=== PATIENT | male | born 1975 | race Caucasian/White ===

== ENCOUNTER 2016-07-31 11:11 | Emergency (ER) | payer SELFPAY ==
[~2016-07-31] VITALS: Ht 168.9 cm; Wt 72.6 kg
[2016-07-31 11:21] VITALS: BP 170/101
[2016-07-31 11:40] LABS: BASO % 0 % (0-3); EOS % 5 % (0-3); HEMATOCRIT 49.9 % (39.0-53.0); HEMOGLOBIN 16.8 g/dL (13.0-17.5); LYMPH # 1.4 x10^3/uL (1.0-4.8); LYMPH % 23 % (24-48); MEAN CORPUSCULAR HEMOGLOBIN 30 pg (25-35); MEAN CORPUSCULAR HGB CONC 34 g/dL (31-37); MEAN CORPUSCULAR VOLUME 89 fL (79-100); MONO % 15 % (0-9); NEUT % 56 % (31-73); PLATELET COUNT 249 x10^3/uL (140-400); RED BLOOD COUNT 5.62 x10^6/uL (4.30-5.70); RED CELL DISTRIBUTION WIDTH 13.1 % (11.5-14.5); WHITE BLOOD COUNT 6.2 x10^3/uL (4.0-11.0)
[2016-07-31 11:48] LABS: CALCIUM 8.6 mg/dL (8.5-10.1); GFR 82.8; POTASSIUM 3.6 mmol/L (3.5-5.1)
[2016-07-31 11:54] LABS: ALBUMIN 3.7 g/dL (3.4-5.0); TOTAL BILIRUBIN 0.3 mg/dL (0.2-1.0); TOTAL PROTEIN 7.5 g/dL (6.4-8.2)
--- NOTE | 2016-07-31 12:21 | PHYS DOC ---
Past Medical History Past Medical History: Cancer, Other Additional Past Medical Histor: leukemia-remission, chronic gallbladder pain Past Surgical History: Other Additional Past Surgical Histo: dental sx Alcohol Use: None Drug Use: None Adult General Chief Complaint Chief Complaint: ABDOMINAL PAIN HPI HPI Patient is a 41 year old male who presents with N/V/D and abdominal pain. Patient reports he has been feeling sick for the past week. He has been having some nausea and vomiting, especially after eating. Having diarrhea as well. Patient reports sharp pain in his RUQ that radiates to his back; no clear mitigating factors. He reports he has a h/o gallstones. Unsure about fever but is having chills. No other acute complaints. Review of Systems Review of Systems Constitutional: Chills Eyes: Denies change in visual acuity or eye pain HENT: Denies nasal congestion or sore throat Respiratory: Denies cough or shortness of breath Cardiovascular: Denies chest pain GI: RUQ pain, nausea, vomiting, diarrhea. Denies blood in emesis or stool : Denies dysuria or hematuria Musculoskeletal: Denies joint pain Integument: Denies rash or skin lesions Neurologic: Denies headache, focal weakness or sensory changes Current Medications Current Medications Current Medications Medications (Trade) Dose Ordered Sig/Milad Start Time Stop Time Status Last Admin Dose Admin Morphine Sulfate 4 mg 1X ONCE 07/31/16 12:30 07/31/16 12:31 DC 07/31/16 12:29 4 MG Ondansetron HCl (Zofran) 4 mg 1X ONCE 07/31/16 12:30 07/31/16 12:31 DC 07/31/16 12:29 4 MG Oxycodone/ Acetaminophen (Percocet 5/325) 2 tab 1X ONCE 07/31/16 13:45 07/31/16 13:46 DC Sodium Chloride (Iv Sodium Chloride 0.9% 1000ml Bag) 1,000 ml @ 1,000 mls/hr Q1H 07/31/16 12:30 07/31/16 13:29 DC 07/31/16 12:30 1,000 MLS/HR Allergies Allergies Allergies Coded Allergies Type Severity Reaction Last Updated Verified No Known Drug Allergies 07/31/16 No Physical Exam Physical Exam Constitutional: Well developed, well nourished, no acute distress, non-toxic appearance HENT: Normocephalic, atraumatic, bilateral external ears normal Eyes: EOMI, conjunctiva normal, no discharge Neck: Normal range of motion, no stridor Cardiovascular: Heart rate normal, regular rhythm, no murmur Lungs & Thorax: Bilateral breath sounds clear to auscultation Abdomen: Bowel sounds normal, soft, non-distended, RUQ TTP without guarding or rebound Skin: Warm, dry, no erythema, no rash Extremities: No obvious deformity, no edema Neurologic: Alert and oriented X 3, no gross deficits noted Current Patient Data Vital Signs Vital Signs Date Time Temp Pulse Resp B/P Pulse Ox O2 Delivery O2 Flow Rate FiO2 07/31/16 12:29 16 98 Room Air 07/31/16 11:21 97.9 96 170/101 97.9 Lab Values Laboratory Tests Test 07/31/16 11:20 White Blood Count 6.2x10^3/uL (4.0-11.0) Red Blood Count 5.62x10^6/uL (4.30-5.70) Hemoglobin 16.8g/dL (13.0-17.5) Hematocrit 49.9% (39.0-53.0) Mean Corpuscular Volume 89fL (79-100) Mean Corpuscular Hemoglobin 30pg (25-35) Mean Corpuscular Hemoglobin Concent 34g/dL (31-37) Red Cell Distribution Width 13.1% (11.5-14.5) Platelet Count 249x10^3/uL (140-400) Neutrophils (%) (Auto) 56% (31-73) Lymphocytes (%) (Auto) 23% (24-48) L Monocytes (%) (Auto) 15% (0-9) H Eosinophils (%) (Auto) 5% (0-3) H Basophils (%) (Auto) 0% (0-3) Neutrophils # (Auto) 3.5x10^3uL (1.8-7.7) Lymphocytes # (Auto) 1.4x10^3/uL (1.0-4.8) Monocytes # (Auto) 0.9x10^3/uL (0.0-1.1) Eosinophils # (Auto) 0.3x10^3/uL (0.0-0.7) Basophils # (Auto) 0.0x10^3/uL (0.0-0.2) Sodium Level 139mmol/L (136-145) Potassium Level 3.6mmol/L (3.5-5.1) Chloride Level 99mmol/L (98-107) Carbon Dioxide Level 31mmol/L (21-32) Anion Gap 9 (6-14) Blood Urea Nitrogen 16mg/dL (8-26) Creatinine 1.0mg/dL (0.7-1.3) Estimated GFR (Cockcroft-Gault) 82.8 BUN/Creatinine Ratio 16 (6-20) Glucose Level 127mg/dL (70-99) H Calcium Level 8.6mg/dL (8.5-10.1) Total Bilirubin 0.3mg/dL (0.2-1.0) Aspartate Amino Transferase (AST) 20U/L (15-37) Alanine Aminotransferase (ALT) 32U/L (16-63) Alkaline Phosphatase 91U/L (46-116) Total Protein 7.5g/dL (6.4-8.2) Albumin 3.7g/dL (3.4-5.0) Albumin/Globulin Ratio 1.0 (1.0-1.7) Amylase Level 66U/L (25-115) Lipase 185U/L (73-393) Laboratory Tests 07/31/16 11:20 Laboratory Tests 07/31/16 11:20 EKG EKG [] Radiology/Procedures Radiology/Procedures RUQ US: Impression: 1. Gallbladder is contracted around numerous gallstones without pericholecystic fluid or gallbladder wall thickening. This finding can be seen in setting of chronic cholecystitis. 2. Dilated common bile duct. Nonvisualized distal obstructing stone or other lesion is possible. Recommend clinical correlation. Course & Med Decision Making Course & Med Decision Making Pertinent Labs and Imaging studies reviewed. (See chart for details) Patient is 41 year old male who presents with RUQ pain and N/V/D. Possible gallbladder disease, would not rule out viral illness as well. Will check RUQ US , labs to evaluate. IVF, pain meds, nausea meds ordered for relief of symptoms. Labs unremarkable; no leukocytosis, LFTs wnl. US results as above. Discussed results with patient and his mother. Discussed follow up with general surgeon as well as GI (given dilated CBD). Patient discharged home with rx for pain meds , nausea meds, instructions for follow up, return precautions. Dragon Disclaimer Dragon Disclaimer This electronic medical record was generated, in whole or in part, using a voice recognition dictation system. Departure Departure Impression: Primary Impression: Cholelithiasis Disposition: 01 HOME, SELF-CARE Condition: STABLE Referrals: JANET HURD MD,RAY Crain MD Patient Instructions: Cholelithiasis Additional Instructions: Thank you for allowing us to provide care today in the Emergency Department. Take the provided medication as directed. Use caution after taking these medications as they can make you drowsy. Schedule a follow up appointment with a surgeon (Dr. Hurd) and a GI specialist (Dr. Arce) using the provided contact information. You have also been provided a list of clinics in the area for patients without insurance. Return promptly to the Emergency Department if you develop any new or concerning symptoms. Scripts Promethazine Hcl 25 Mg [id number] Mg PO Q6H PRN NAUSEA/VOMITING #15 TAB Prov:CLAIRE NAJERA MD 07/31/16 Hydrocodone/Apap 5-325 (Allgood 5-325 Tablet)1 Each Tablet1 Tab PO PRN Q6HRS PRN PAIN #20 TAB Prov:CLAIRE NAJERA MD 07/31/16 CLAIRE NAJERA MD Jul 31, 2016 12:21
[2016-07-31] MEDS ORDERED: ONDANSETRON PF 4 MG/2 ML VIAL. IV ONE (12:30)
[2016-07-31] MEDS ORDERED: IV NORMAL SALINE 1000ML BAG 1,000 ML IV SCH (12:30)
[2016-07-31] MEDS ORDERED: MORPHINE SULFATE 4 MG/ML DISP.SYRIN. IV ONE (12:30)
[2016-07-31] MEDS ORDERED: HYDR-971 PO (13:13)
--- NOTE | 2016-07-31 13:14 | RAD ---
Right upper quadrant abdominal ultrasound History: Right upper quadrant pain, evaluate gallbladder. Comparison: None. Technique: Transabdominal ultrasound images are obtained. Findings: Pancreas is poorly visualized. Liver is normal in echogenicity. No focal hepatic masses are identified. Right hepatic lobe measures 16.7 cm in length. Gallbladder is filled with and contracted around numerous gallstones. No gallbladder wall thickening or pericholecystic fluid is identified. Common bile duct measures dilated at 8 mm in diameter. The right kidney measures 11.0 cm in length and is without evidence of obstruction or stone. Visualized portions of the IVC have normal caliber. No ascites is seen. Impression: 1. Gallbladder is contracted around numerous gallstones without pericholecystic fluid or gallbladder wall thickening. This finding can be seen in setting of chronic cholecystitis. 2. Dilated common bile duct. Nonvisualized distal obstructing stone or other lesion is possible. Recommend clinical correlation.
[2016-07-31] MEDS ORDERED: PROM25TA10 PO (13:28)
[2016-07-31] MEDS ORDERED: OXYCODONE/APAP 5/325 TABLET. PO ONE (13:45)
== END 2016-07-31 13:53 | disposition home or self-care (01) ==
LOC: ER 11:11
DX: K80.20 Calculus of gallbladder without cholecystitis without obstruction (principal)
CPT/HCPCS: 36415; 76705; 80053; 82150; 83690; 85027; 96361; 96374; 96375; 99285; J2270; J2405; J7030

== ENCOUNTER 2017-02-27 15:12 | Emergency (ER) | payer SELFPAY ==
[~2017-02-27] VITALS: Ht 167.6 cm; Wt 72.6 kg
[~2017-02-27 15:12] MED LIST: HYDR-971 PO; PROM25TA10 PO
--- NOTE | 2017-02-27 15:35 | PHYS DOC ---
Past Medical History Past Medical History: Cancer, Other Additional Past Medical Histor: leukemia-remission, chronic gallbladder pain Past Surgical History: Other Additional Past Surgical Histo: dental sx Alcohol Use: None Drug Use: Methamphetamine Adult General Chief Complaint Chief Complaint: FACE PAIN [facility] HPI Patient is a 41 year old presents emergency department stating that he was out working on a shelf when a pickup board came and hit him in the face. He has an approximately 1 cm laceration noted to his right upper lip. No bleeding or drainage coming from the site at this time. Patient states his last tetanus immunization was 2 years ago. He denies any loose teeth, he denies any loss of consciousness, denies any neck pain or discomfort. Review of Systems Review of Systems Constitutional: Denies fever or chills [] Eyes: Denies change in visual acuity, redness, or eye pain [] HENT: Denies nasal congestion or sore throat [] Respiratory: Denies cough or shortness of breath [] Cardiovascular: No additional information not addressed in HPI [] GI: Denies abdominal pain, nausea, vomiting, bloody stools or diarrhea [] : Denies dysuria or hematuria [] Musculoskeletal: Denies back pain or joint pain [] Integument: Denies rash or skin lesions. Laceration to the right upper lip Neurologic: Denies headache, focal weakness or sensory changes [] Endocrine: Denies polyuria or polydipsia [] Current Medications Current Medications Current Medications Medications (Trade) Dose Ordered Sig/Milad Start Time Stop Time Status Last Admin Dose Admin Acetaminophen (Tylenol) 1,000 mg 1X ONCE 02/27/17 16:30 02/27/17 16:31 DC 02/27/17 16:21 1,000 MG Lidocaine/Sodium Bicarbonate (Buffered Lidocaine 1%) 20 ml 1X ONCE 02/27/17 15:45 02/27/17 15:46 DC 02/27/17 16:22 20 ML Allergies Allergies Allergies Coded Allergies Type Severity Reaction Last Updated Verified No Known Drug Allergies 07/31/16 No Physical Exam Physical Exam Constitutional: Well developed, well nourished, no acute distress, non-toxic appearance. [] HENT: Normocephalic, atraumatic, bilateral external ears normal, oropharynx moist, no oral exudates, nose normal. [] Eyes: PERRLA, EOMI, conjunctiva normal, no discharge. [] Neck: Normal range of motion, no tenderness, supple, no stridor. [] Cardiovascular:Heart rate regular rhythm Lungs & Thorax: No respiratory distress noted Skin: Warm, dry, no erythema, no rash. Patient with 1 cm laceration noted to the right upper lip. No bleeding or drainage or discharge noted from the site. Back: No tenderness Extremities: No tenderness, no cyanosis, no clubbing, ROM intact, no edema. [] Neurologic: Alert and oriented X 3, normal motor function, normal sensory function, no focal deficits noted. [] Psychologic: Affect normal, judgement normal, mood normal. [] Current Patient Data Vital Signs Vital Signs Date Time Temp Pulse Resp B/P (MAP) Pulse Ox O2 Delivery O2 Flow Rate FiO2 02/27/17 17:39 74 14 118/69 (85) 98 Room Air 02/27/17 15:22 98.2 98.2 EKG EKG [] Radiology/Procedures Radiology/Procedures [] Course & Med Decision Making Course & Med Decision Making Pertinent Labs and Imaging studies reviewed. (See chart for details) Patient was laceration to his right upper lip that appears to be through and through. Site was injected with 1% lidocaine with 4 mL. Site was irrigated with normal saline with approximately 20 mL. Site was cleaned with Betadine. 3 sutures were placed on the inner part of the lip with 2 on the outer part. Patient tolerated the procedure well with 6-0 nylon. Patient was provided with Tylenol here in the emergency department as well. CT scan of the head and the maxillofacial without contrast was negative per radiology. Patient will be discharged home with recommendations for Tylenol for pain and discomfort. He was also instructed to have somebody wake you every 2 hours at the night making sure he is alert and oriented. Ice packs to the right side of his face on 20 minutes off 20 minutes several times a day. Recommended following up with his primary care physician in the next 2-3 days. Signs symptoms to return back to emergency department as been provided. Patient was also instructed to keep the area clean and dry clean the site with soap and water twice a day. He was also recommended to take antibiotics amoxicillin due to the laceration be an through and through. Signs symptoms of infection was provided to the patient. Patient agrees with discharge instructions treatment regimens and follow-up recommendations. Signs and symptoms to return back to emergency department was provided. All questions and concerns were answered at bedside. Dragon Disclaimer Dragon Disclaimer This electronic medical record was generated, in whole or in part, using a voice recognition dictation system. Departure Departure Impression: Primary Impression: Head injury Additional Impression: Laceration Disposition: 01 HOME, SELF-CARE Condition: STABLE Referrals: NO PCP (PCP) Patient Instructions: Concussion and Brain Injury, [id number], Head Injury, Adult, [id number], Mouth Laceration, [id number], Sutured Wound Care, Easy-to -Read Additional Instructions: Your x-rays were negative for any abnormalities per radiologist. Keep the sutures clean and dry. Clean the sites twice a day with soap and water and apply antibiotic ointment. Use warm salt water mouth rinses after each meal to help prevent infections in the inside laceration. Antibiotics as prescribed. Tylenol for pain and discomfort. Ice packs on 20 minutes off 20 minutes several times a day. Estimated wake you every 2 hours through the night making sure you alert and oriented. Follow-up to primary care physician in the next 2-3 days. Return back to emergency department for signs and symptoms of become worse. Scripts Amoxicillin (AMOXICILLIN) 500 Mg Capsule 1 CAP PO QID, #40 CAP Prov: JYOTI BENJAMIN APRN 02/27/17 Problem Qualifiers JYOTI BENJAMIN APRN Feb 27, 2017 15:34
[2017-02-27] MEDS ORDERED: LIDOCAINE 1% / SOD BICARB 8.4% 20 ML VIAL. IJ ONE (15:45)
[2017-02-27] MEDS ORDERED: ACETAMINOPHEN 500 MG TABLET PO ONE (16:30)
[2017-02-27 17:39] VITALS: BP 118/69
[2017-02-27] MEDS ORDERED: AMOX500C PO (17:47)
--- NOTE | 2017-02-27 18:48 | RAD ---
EXAM: Head and maxillofacial bone CT without contrast. HISTORY: Trauma. TECHNIQUE: Computed tomographic images of the head and maxillofacial bones were obtained without contrast. *One or more of the following individualized dose reduction techniques were utilized for this examination: 1. Automated exposure control. 2. Adjustment of the mA and/or kV according to patient size. 3. Use of iterative reconstruction technique. COMPARISON: None. FINDINGS: Head: There is no acute or subacute hemorrhage. There is no mass effect or midline shift. There is no hydrocephalus. The perez and white matter differentiation pattern is intact. Maxillofacial bones: There is a small left maxillary sinus mucous retention cyst. There is mild ethmoid sinus mucosal thickening. There is a tiny amount of fluid within the mastoid air cells. The temporomandibular joints are intact. The proximal cervical spine demonstrates no severe stenosis. There is minimal nasal septal deviation. The ostiomeatal units are patent. There are multiple dental restorations. IMPRESSION: No acute intracranial finding or evidence of acute maxillofacial bone trauma. Electronically signed by: Susan Abernathy MD (02/27/2017 6:45 PM) [facility]
== END 2017-02-27 17:54 | disposition home or self-care (01) ==
LOC: ER 15:12
DX: S01.511A Laceration without foreign body of lip, initial encounter (principal); S09.90XA Unspecified injury of head, initial encounter; W22.8XXA Striking against or struck by other objects, initial encounter; Y93.89 Activity, other specified; Y92.89 Other specified places as the place of occurrence of the external cause; Y99.8 Other external cause status
CPT/HCPCS: 12011; 70450; 70486; 99284-25

== ENCOUNTER 2017-05-31 01:17 | Emergency (ER) | payer SELFPAY ==
[~2017-05-31] VITALS: Ht 172.7 cm; Wt 74.8 kg
[~2017-05-31 01:17] MED LIST changes: +AMOX500C PO
[2017-05-31 01:27] VITALS: BP 128/81
[2017-05-31] MEDS ORDERED: SULF1TAB24 PO (01:53)
--- NOTE | 2017-05-31 01:53 | PHYS DOC ---
Past Medical History Past Medical History: Cancer, Other Additional Past Medical Histor: leukemia-remission, chronic gallbladder pain Past Surgical History: Other Additional Past Surgical Histo: dental sx Alcohol Use: None Drug Use: Methamphetamine Adult General Chief Complaint Chief Complaint: SKIN PROBLEM HPI HPI Patient is a 42 year old gentleman with a history significant for methamphetamine abuse presents to the ER today complaining of a rash diffusely throughout his body. Patient reports been there for approximately 1-2 weeks. Patient reports he thought the rash was secondary to coming into contact with the patient had scabies. Patient denies any fevers shakes chills nausea vomiting diarrhea chest pain terns of breath cough cold rhinorrhea. Patient reports that he smokes methamphetamine on a regular basis. Patient denies any other past medical history. No history of hypertension diabetes lung liver or kidney problems. Patient has no known drug allergies. Patient reports he smokes , no alcohol, regular methamphetamine abuse. Review of systems: Constitutional: Denies fever or chills Eyes: Denies change in visual acuity, redness, or eye pain HENT: Denies nasal congestion or sore throat Respiratory: Denies cough or shortness of breath Physical exam Constitutional: Well developed, well nourished, no acute distress, non-toxic appearance. HENT: Normocephalic, atraumatic, bilateral external ears normal, oropharynx moist, no oral exudates, nose normal. Eyes: PERRLA, EOMI, conjunctiva normal, no discharge. Neck: Normal range of motion, no tenderness, supple, no stridor. Cardiovascular:Heart rate regular rhythm, Lungs & Thorax: Bilateral breath sounds clear to auscultation Abdomen: Bowel sounds normal, soft, no tenderness, no masses, no pulsatile masses. Skin: Warm, dry, no erythema, rash consistent with staph aureus lesions to his arms. Back: No tenderness, no CVA tenderness. Extremities: No tenderness, no cyanosis, no clubbing, ROM intact, no edema. Neurologic: Alert and oriented X 3, normal motor function, normal sensory function, no focal deficits noted. Psychologic: Affect normal, judgement normal, mood normal. Assessment and plan This is a 42-year-old gentleman who presents here today with a rash that appears to be consistent with staph aureus. Patient will be treated with Bactrim DS. Patient was given a protrusion for Bactrim DS one by mouth twice a day. Patient does not appear to be septic in any way. Patient is afebrile with any fevers at home. Patient's clinically hemodynamically stable for discharge home and outpatient workup. Allergies Allergies Allergies Coded Allergies Type Severity Reaction Last Updated Verified No Known Drug Allergies 07/31/16 No Current Patient Data Vital Signs Vital Signs Date Time Temp Pulse Resp B/P (MAP) Pulse Ox O2 Delivery O2 Flow Rate FiO2 05/31/17 01:27 98.5 94 22 95 Room Air 98.5 EKG EKG [] Radiology/Procedures Radiology/Procedures [] Course & Med Decision Making Course & Med Decision Making Pertinent Labs and Imaging studies reviewed. (See chart for details) [] Dragon Disclaimer Dragon Disclaimer This electronic medical record was generated, in whole or in part, using a voice recognition dictation system. Departure Departure Impression: Primary Impression: Staph aureus infection Additional Impression: Methamphetamine abuse Disposition: HOME, SELF-CARE Condition: IMPROVED Referrals: YOGI GUZMAN MD (PCP) Patient Instructions: Cellulitis Scripts Sulfamethoxazole/Trimethoprim (BACTRIM DS TABLET) 1 Each Tablet 2 TAB PO BID for 10 Days, TAB Prov: CALLUM ISAAC MD 05/31/17 Problem Qualifiers CALLUM ISAAC MD May 31, 2017 01:53
[2017-05-31] MEDS ORDERED: SMZ/TMP 800/160MG TABLET. PO ONE (02:15)
== END 2017-05-31 02:06 | disposition home or self-care (01) ==
LOC: ER 01:17
DX: B95.61 Methicillin susceptible Staphylococcus aureus infection as the cause of diseases classified elsewhere (principal); F15.10 Other stimulant abuse, uncomplicated; B86 Scabies; G89.29 Other chronic pain
CPT/HCPCS: 99283

== ENCOUNTER 2019-10-26 20:34 | Emergency (ER) | payer SELFPAY ==
[~2019-10-26] VITALS: Ht 172.7 cm; Wt 75.0 kg
[~2019-10-26 20:34] MED LIST changes: +HYDR-3164 PO; -HYDR-971 PO; +SULF1TAB24 PO
--- NOTE | 2019-10-26 21:16 | PHYS DOC ---
Past Medical History Past Medical History: Cancer, Other Additional Past Medical Histor: leukemia-remission, chronic gallbladder pain Past Surgical History: Other Additional Past Surgical Histo: dental sx Smoking Status: Current Every Day Smoker Alcohol Use: None Drug Use: Methamphetamine General Adult EDM: Chief Complaint: ABDOMINAL PAIN HPI: HPI: 44-year-old male presents to the emergency department complaints of GI symptoms. Patient states symptoms started on Tuesday, improved however worsened today with some nausea. He describes some cough as well denies any fever. He denies any shortness of breath on examination. Patient has any headache or visual change, chest pain. He has no abdominal pain at this time. He was concerned that he may have gallbladder inflammation. Nothing makes his symptoms worse, nothing makes his symptoms better. Review of Systems: Review of Systems: Constitutional: Denies fever or chills. [] Respiratory: cough, no shortness of breath. [] Cardiovascular: Denies chest pain or edema. [] GI: abdominal pain, nausea, no vomiting, bloody stools or diarrhea. [] Musculoskeletal: Denies back pain or joint pain. [] Neurologic: Denies headache, focal weakness or sensory changes. [] Endocrine: Denies polyuria or polydipsia. [] Heart Score: Risk Factors: Risk Factors: DM, Current or recent (<one month) smoker, HTN, HLP, family history of CAD, obesity. Risk Scores: Score 0 - 3: 2.5% MACE over next 6 weeks - Discharge Home Score 4 - 6: 20.3% MACE over next 6 weeks - Admit for Clinical Observation Score 7 - 10: 72.7% MACE over next 6 weeks - Early Invasive Strategies Allergies: Allergies: Allergies Coded Allergies Type Severity Reaction Last Updated Verified No Known Drug Allergies 07/31/16 No Physical Exam: PE: Constitutional: Well developed, well nourished, no acute distress, non-toxic appearance. [] Cardiovascular:Heart rate regular rhythm, no murmur [] Lungs & Thorax: Bilateral breath sounds clear to auscultation [] Abdomen: Bowel sounds normal, soft, no tenderness, no masses, no pulsatile masses. [] Skin: Warm, dry, no erythema, no rash. [] Extremities: No tenderness, no cyanosis, no clubbing, ROM intact, no edema. [] Neurologic: Alert and oriented X 3, no focal deficits noted. [] Psychologic: Affect normal, judgement normal, mood normal. [] Current Patient Data: Vital Signs: Vital Signs Date Time Temp Pulse Resp B/P (MAP) Pulse Ox O2 Delivery O2 Flow Rate FiO2 10/26/19 20:43 97.9 98 24 151/92 (111) 97 Room Air 97.9 EKG: EKG: [] Radiology/Procedures: Radiology/Procedures: [facility] [address] [place] [address] IMAGING REPORT Signed PATIENT: BETZY GONZALEZ ACCOUNT: [id number] : 1975 LOCATION: ER AGE: 44 SEX: M EXAM STATUS: REG ER ORD. PHYSICIAN: CLAIRE HUMPHRIES MD REASON: abdominal pain PROCEDURE: KUB KUB 10/26/2019 9:11 PM INDICATION: Abdominal pain COMPARISON: None available. TECHNIQUE: Single supine view the abdomen is provided. FINDINGS/ IMPRESSION: 1. Nonobstructive bowel gas pattern. Moderate amount of stool is noted throughout the colon. Supine technique limits evaluation for pneumoperitoneum. 2. No organomegaly. No suspicious genitourinary calcifications. Osseous structures are within normal limits. Electronically signed by: Gil Peter MD (10/26/2019 9:34 PM) [facility] DICTATED and SIGNED BY: GIL PETER MD DATE: 10/26/192133 [] Course & Med Decision Making: Course & Med Decision Making Pertinent Labs and Imaging studies reviewed. (See chart for details) []44-year-old male presents to the emergency department complaints of GI symptoms. Patient states symptoms started on Tuesday, improved however worsened today with some nausea. He describes some cough as well denies any fever. He denies any shortness of breath on examination. Patient has any headache or visual change, chest pain. He has no abdominal pain at this time. He was concerned that he may have gallbladder inflammation. Nothing makes his symptoms worse, nothing makes his symptoms better. Labs/imaging reviewed KUB reveals evidence of stool within the colon, normal bowel gas pattern, no obstructive process IV fluids, no medications given secondary to patient's without symptoms. Plan Erin Canela upon discharge, discussed bowel regimen Will provide hydrocortisone topical steroid for patient's psoriasis Avelina Disclaimer: Avelina Disclaimer: This electronic medical record was generated, in whole or in part, using a voice recognition dictation system. Departure Departure Impression: Primary Impression: Abdominal pain Qualified Codes: R10.84 - Generalized abdominal pain Additional Impressions: Nausea Psoriasis Disposition: HOME, SELF-CARE Condition: STABLE Referrals: DARIAN GUZMAN MD (PCP) Patient Instructions: Abdominal Pain (Nonspecific), Psoriasis, [id number] Additional Instructions: Recommend bowel regimen with medications over the counter (colace, miralax) KUB (xray) negative for obstruction Labs reviewed without inflammatory process identified bentyl/zofran rx provided upon discharge Scripts Ondansetron Hcl (ZOFRAN) 4 Mg Tablet 1 TAB PO PRN Q6-8HRS for nausea, #12 TAB Prov: CLAIRE HUMPHRIES MD 10/26/19 Dicyclomine Hcl (DICYCLOMINE HCL) 10 Mg Capsule 1 CAP PO TID for 5 Days, #15 CAP 0 Refills Prov: CLAIRE HUMPHRIES MD 10/26/19 CLAIRE HUMPHRIES MD Oct 26, 2019 21:16
[2019-10-26 21:19] LABS: BASO % 0 % (0-3); EOS # 0.2 x10^3/uL (0.0-0.7); EOS % 2 % (0-3); HEMATOCRIT 44.3 % (39.0-53.0); HEMOGLOBIN 14.8 g/dL (13.0-17.5); LYMPH # 1.1 x10^3/uL (1.0-4.8); LYMPH % 10 % (24-48); MEAN CORPUSCULAR HEMOGLOBIN 30 pg (25-35); MEAN CORPUSCULAR HGB CONC 34 g/dL (31-37); MEAN CORPUSCULAR VOLUME 91 fL (79-100); MONO # 0.9 x10^3/uL (0.0-1.1); MONO % 8 % (0-9); NEUT % 79 % (31-73); PLATELET COUNT 289 x10^3/uL (140-400); RED BLOOD COUNT 4.89 x10^6/uL (4.30-5.70); RED CELL DISTRIBUTION WIDTH 13.3 % (11.5-14.5); WHITE BLOOD COUNT 11.3 x10^3/uL (4.0-11.0)
[2019-10-26] MEDS ORDERED: IV NORMAL SALINE 1000ML BAG 1,000 ML IV SCH (21:30)
--- NOTE | 2019-10-26 21:37 | RAD ---
KUB 10/26/2019 9:11 PM INDICATION: Abdominal pain COMPARISON: None available. TECHNIQUE: Single supine view the abdomen is provided. FINDINGS/ IMPRESSION: 1. Nonobstructive bowel gas pattern. Moderate amount of stool is noted throughout the colon. Supine technique limits evaluation for pneumoperitoneum. 2. No organomegaly. No suspicious genitourinary calcifications. Osseous structures are within normal limits. Electronically signed by: Mariposa Floyd MD (10/26/2019 9:34 PM) VIVIANA
[2019-10-26 21:47] LABS: ALBUMIN 3.1 g/dL (3.4-5.0); ALBUMIN/GLOBULIN RATIO 0.7 (1.0-1.7); TOTAL PROTEIN 7.4 g/dL (6.4-8.2)
[2019-10-26 21:48] LABS: CALCIUM 8.9 mg/dL (8.5-10.1); GFR 81.6; TOTAL BILIRUBIN 0.2 mg/dL (0.2-1.0)
[2019-10-26 21:49] LABS: POTASSIUM 4.2 mmol/L (3.5-5.1)
[2019-10-26] MEDS ORDERED: DICY10CA3 PO (22:00)
[2019-10-26] MEDS ORDERED: ONDA4TAB7 PO (22:00)
[2019-10-26] MEDS ORDERED: HYDR28.423 TP (22:05)
[2019-10-26] MEDS ORDERED: [UNRECOGNIZED DRUG - OTHER] (22:05)
[2019-10-26 22:13] VITALS: BP 125/73
[2019-10-29] MEDS ORDERED: PIPERACILLIN/TAZOBACTAM 3.375 GM in IV NORMAL SALINE 50ML 50 ML IV ONE (06:00)
== END 2019-10-26 22:11 | disposition home or self-care (01) ==
LOC: ER 20:34
DX: R10.84 Generalized abdominal pain (principal); R11.0 Nausea; L40.9 Psoriasis, unspecified; F17.200 Nicotine dependence, unspecified, uncomplicated
CPT/HCPCS: 36415; 74018; 80053; 83690; 85025; 87070; 87880; 99284; J7030